=== PATIENT | female | born 1955 | race Caucasian/White ===

== ENCOUNTER 2021-07-19 21:06 | Inpatient (IN) | payer MEDICARE, OTHER ==
[~2021-07-19] VITALS: Ht 165.1 cm; Wt 71.2 kg
--- NOTE | 2021-07-19 21:40 | NUR ---
Pt brought back to room ED3 by comprehensive advisor Piyush. Placed on gurkillen in pos of comfort. Initial VSS, pt afebrile with good color, temp and appearance. Pt seems slightly irritable talking to herself and complaining of an old spider bite that happened few years ago. Pt otherwise follows commands and is respectful.
--- NOTE | 2021-07-19 22:58 | NUR ---
Medically cleared by ERMD.
--- NOTE | 2021-07-19 23:10 | NUR ---
Crisis team called for eval. Pt awaiting crisis rep for assessment.
--- NOTE | 2021-07-19 23:30 | NUR ---
Pt resting comfortably on gurney, in pos of comfort. Dozing off to sleep with audible snorring.
[2021-07-20] MEDS ORDERED: MAG HYDROX/AL HYDROX/SIMETH 30 ML LIQUID UDC PO PRN (02:15)
[2021-07-20] MEDS ORDERED: MAGNESIUM HYDROXIDE 30 ML LIQUID UDC PO PRN (02:15)
--- NOTE | 2021-07-20 02:30 | NUR ---
Pt seen by crisis rep earlier in the evening and placed on a 72hr hold. Intake called for a [facility] psych bed. Pt admitted to room 145 in the MHU.
--- NOTE | 2021-07-20 03:05 | NUR ---
Pt transported to [facility] via gurney with all her bags placed on top of gurney, accomplanied by me. Pt has good color, temp and appearance. VSS, PE WNL, pt resting quietly, following commands and being respectful
[2021-07-20] MEDS: LORAZEPAM 0.5 MG TABLET PO PRN ×2 (03:14→20:47)
[2021-07-20] MEDS: ACETAMINOPHEN 325 MG TABLET PO PRN (03:14)
[2021-07-20 03:15] VITALS: BP 134/74
--- NOTE | 2021-07-20 04:00 | NUR ---
ADMIT NOTE: Patient is a 65 yr old female admitted on a 5150 for Grave Disability. From [place] [facility] patient was found on the floor outside an urgent care, homeless, unable to care for self. Patient's appearance disheveled, unkempt with garbled tangental speech as well as exhibiting bizarre behavior. Patient is alert to name, time and date however when engaged pt. is unable to maintain a coherent conversation. Refused to sign and/or participate with admitting paperwork, stated she was tired and went to sleep. Hx of Methamphetamines and opioid use. Psychiatrist and physician aware of admission orders received and carried out. Patient stated she has a spider bite on right wrist (scab) which she claimed required surgery and demanded she had it first thing in the morning otherwise she would daisy the hospital for negligence. Patient's rights handbook provided. Plan of care initiated and observation Q15 minutes will take place times twenty-four hours.
[2021-07-20] MEDS ORDERED: GABA-532 PO (05:58)
[2021-07-20] MEDS ORDERED: HYDR-3980 PO (05:58)
[2021-07-20] MEDS ORDERED: QUET50TA PO (05:58)
[2021-07-20 07:30] VITALS: BP 145/67
[2021-07-20] MEDS: NICOTINE 14 MG/24HR PATCH TD SCH (09:23)
--- NOTE | 2021-07-20 10:05 | NUR ---
Firearms Report: Pelt Dropper completed and submitted a [employer] firearms report for 5150 grave disability certifications. A copy of report has been placed in patient chart.
--- NOTE | 2021-07-20 11:39 | NUR ---
[facility] Initial Discharge Plan: Patient is currently homeless. SW offered patient SNF placement and patient agreed. Patient has no next of kin contacts. LEDY will continue to work with patient, family, and MD to ensure a safe and proper discharge plan.
--- NOTE | 2021-07-20 12:01 | NUR ---
Brief Substance Abuse Intervention: Patient was provided with a brief substance abuse intervention and referred to the following substance abuse programs: [facility] Substance Abuse Self-helpline ([phone]); [facility] [address] [place] [address] ([phone]); [facility] [address] [facility] [address] ([phone]); [facility] ([phone]); [facility] ([phone]); [facility] ([phone]); [facility] ([phone]).
--- NOTE | 2021-07-20 12:30 | NUR ---
Gps/Cover Making Machine Operator- Encouraged to shower, wants her own shampoo in her suit case, unable to find. Showered self ind . after set up.
[2021-07-20] MEDS ORDERED: GABAPENTIN 100 MG CAPSULE PO SCH (13:00)
--- NOTE | 2021-07-20 15:05 | NUR ---
Gps/Bread Room Hand- Unable to clarify with patient why she is taking gabapentin , unable to find in her records reason for it.
--- NOTE | 2021-07-20 15:32 | NUR ---
Gps/Hide Splitter Patient requesting to get her oral antibiotic she claimed" I have syphylis and i have pneumonia , i needed my antibiotic" reassured patient the Medical Doctor will take care of her medical problems here if she has any issues. Adequate fluid intake., afebrile .Unable to get full informations from patient she is tangental , speech gets confused.
[2021-07-20 16:30] VITALS: BP 128/72
[2021-07-20] MEDS: GABAPENTIN 300 MG CAPSULE PO SCH (17:39)
[2021-07-20 20:22] VITALS: BP 126/72
[2021-07-20] MEDS: DIVALPROEX SPRINKLE 125 MG CAP.SPRINK PO SCH (20:47)
[2021-07-20] MEDS: OLANZAPINE 2.5 MG TABLET PO SCH (20:47)
[2021-07-21 07:30] VITALS: BP 144/90
[2021-07-21 08:13] LABS: BILIRUBIN,TOTAL 0.3 mg/dL (0.2-1.0); CREATININE 0.9 mg/dL (0.6-1.3); POTASSIUM 4.3 mmol/L (3.5-5.1); TOTAL PROTEIN, SERUM 6.9 g/dL (6.4-8.2)
[2021-07-21] MEDS: OLANZAPINE 2.5 MG TABLET PO SCH ×2 (08:58→20:14)
[2021-07-21] MEDS: DIVALPROEX SPRINKLE 125 MG CAP.SPRINK PO SCH ×2 (08:58→20:13)
[2021-07-21] MEDS: GABAPENTIN 300 MG CAPSULE PO SCH ×3 (08:58→17:00)
[2021-07-21] MEDS: NICOTINE 14 MG/24HR PATCH TD SCH (09:00)
--- NOTE | 2021-07-21 11:39 | NUR ---
Gps/Instructor Trainer Canine Service- Dr Hemanth Cooley in to see patient, informed patient had complaints of having infections disease (i.e. pneumonia and syphyllis) aware of patient's complaints , does note believed not reliable complaints. Adequate fluid intake.
[2021-07-21 16:57] VITALS: BP 149/96
[2021-07-21 20:00] VITALS: BP 127/77
--- NOTE | 2021-07-21 21:19 | NUR ---
GPS: Pt.currently refusing PNA and flu vaccine when offered despite explanation of risks vs benefits x3.
[2021-07-22] MEDS: ZOLPIDEM 5 MG TABLET PO PRN (00:19)
--- NOTE | 2021-07-22 05:54 | NUR ---
GPS: Pt.slept 7.15 last night. Remains disorganized,delusional and with impaired judgement. Re-assured and re-directed prn. Safety emphasized. Will continue to monitor.
[2021-07-22 07:51] VITALS: BP 143/95
[2021-07-22] MEDS: DIVALPROEX SPRINKLE 125 MG CAP.SPRINK PO SCH ×2 (08:24→20:23)
[2021-07-22] MEDS: GABAPENTIN 300 MG CAPSULE PO SCH ×3 (08:24→17:37)
[2021-07-22] MEDS: NICOTINE 14 MG/24HR PATCH TD SCH (08:24)
[2021-07-22] MEDS: OLANZAPINE 2.5 MG TABLET PO SCH ×2 (08:24→20:22)
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
[2021-07-22 16:21] VITALS: BP 114/60
[2021-07-22 20:00] VITALS: BP 110/58
[2021-07-23] MEDS: DIVALPROEX SPRINKLE 125 MG CAP.SPRINK PO SCH ×2 (08:27→20:41)
[2021-07-23] MEDS: GABAPENTIN 300 MG CAPSULE PO SCH ×3 (08:27→18:17)
[2021-07-23] MEDS: OLANZAPINE 2.5 MG TABLET PO SCH ×2 (08:27→20:41)
[2021-07-23] MEDS: NICOTINE 14 MG/24HR PATCH TD SCH (08:28)
[2021-07-23 10:49] VITALS: BP 143/93
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
[2021-07-23 15:22] VITALS: BP 161/90
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
[2021-07-23] MEDS: HYDROCODONE/APAP 10-325 MG TABLET PO PRN (20:41)
[2021-07-24 08:02] VITALS: BP 111/71
[2021-07-24] MEDS: GABAPENTIN 300 MG CAPSULE PO SCH ×3 (08:46→17:57)
[2021-07-24] MEDS: NICOTINE 14 MG/24HR PATCH TD SCH (08:46)
[2021-07-24] MEDS: OLANZAPINE 2.5 MG TABLET PO SCH ×2 (08:46→20:18)
[2021-07-24] MEDS: DIVALPROEX SPRINKLE 125 MG CAP.SPRINK PO SCH ×3 (08:51→17:58)
--- NOTE | 2021-07-24 09:33 | NUR ---
LEDY SNF Referral: LEDY faxed patient's referral packet to [facility] (fax: [phone]) for review attention to Aubree bautistaseo coordinator. Addendum: 07/24/21 at 1211 by ANNETTA MACHADO Patient did not get accepted for placement.
--- NOTE | 2021-07-24 12:11 | NUR ---
SW SNF Referral: LEDY faxed patient's referral packet to [facility] ([phone]) and [facility] ([phone]) for review attention to Matthew.
[2021-07-24 16:01] VITALS: BP 137/71
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
[2021-07-24 20:25] VITALS: BP 126/66
[2021-07-25 07:30] VITALS: BP 148/73
[2021-07-25] MEDS: OLANZAPINE 2.5 MG TABLET PO SCH ×2 (09:12→20:05)
[2021-07-25] MEDS: DIVALPROEX SPRINKLE 125 MG CAP.SPRINK PO SCH ×3 (09:12→18:18)
[2021-07-25] MEDS: GABAPENTIN 300 MG CAPSULE PO SCH ×3 (09:12→18:18)
[2021-07-25] MEDS: NICOTINE 14 MG/24HR PATCH TD SCH (09:12)
--- NOTE | 2021-07-25 10:49 | NUR ---
LED[facility] PC Hearing: Patient had 5250 probable cause hearing today and it was upheld for grave disability.
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
[2021-07-25 15:12] VITALS: BP 123/66
[2021-07-25 19:48] VITALS: BP 128/69
--- NOTE | 2021-07-26 06:37 | NUR ---
GPS: Pt.slept 8.15 last night. Remains delusional, disorganized and hyperverbal. Re-directed and re-assured prn. Safe environment provided. Will continue to monitor.
[2021-07-26 07:30] VITALS: BP 137/59
[2021-07-26] MEDS: DIVALPROEX SPRINKLE 125 MG CAP.SPRINK PO SCH ×3 (08:39→17:14)
[2021-07-26] MEDS: GABAPENTIN 300 MG CAPSULE PO SCH ×3 (08:39→17:14)
[2021-07-26] MEDS: OLANZAPINE 2.5 MG TABLET PO SCH ×2 (08:39→21:07)
[2021-07-26] MEDS: NICOTINE 14 MG/24HR PATCH TD SCH (08:39)
--- NOTE | 2021-07-26 09:11 | NUR ---
GPS: PT ON BED, HAVING BREAKFAST.. COOPERATIVE WITH CARE AND COMPLIANT WITH MEDICATIONS. PT SEEN WITH RIGHT ARM WOUND, SAID THAT IT HAS BEEN THERE FOR YEARS AND IT COMES AND GOES AND SHE LIKES TO HAVE A SURGERY ON IT.
[2021-07-26] MEDS: HYDROCODONE/APAP 10-325 MG TABLET PO PRN ×2 (12:37→21:24)
--- NOTE | 2021-07-26 13:28 | NUR ---
GPS: PT SEEN BY DR ANDUJAR AROUND LUNCH TIME AND EXAMINED HER RIGHT ARM WOUND. PER MD, SHE WILL PRESCRIBE MEDICATION FOR THE SPIDER BITE THAT PT HAD SINCE LAST YEAR.
[2021-07-26 16:00] VITALS: BP 144/69
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
[2021-07-26 20:03] VITALS: BP 124/75
[2021-07-27] MEDS: ZOLPIDEM 5 MG TABLET PO PRN (00:55)
[2021-07-27] MEDS: LORAZEPAM 0.5 MG TABLET PO PRN (01:55)
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
--- NOTE | 2021-07-27 06:00 | NUR ---
Slept 5.25 hours, total. Continues to sleep. No distress noted.
[2021-07-27 07:30] VITALS: BP 112/71
[2021-07-27] MEDS: GABAPENTIN 300 MG CAPSULE PO SCH ×3 (08:13→17:07)
[2021-07-27] MEDS: NICOTINE 14 MG/24HR PATCH TD SCH (08:13)
[2021-07-27] MEDS: DIVALPROEX SPRINKLE 125 MG CAP.SPRINK PO SCH ×3 (08:13→17:07)
[2021-07-27] MEDS: OLANZAPINE 2.5 MG TABLET PO SCH ×2 (08:13→21:18)
--- NOTE | 2021-07-27 09:17 | NUR ---
GPS: RECEIVED PT TODAY, ALERT AND ORIENTED X 3. ORDERED COVID TEST PT WILL BE DISCHARGE TOMORROW PER SW.
[2021-07-27] MEDS: ACETAMINOPHEN 325 MG TABLET PO PRN (13:15)
[2021-07-27 16:00] VITALS: BP 113/61
--- NOTE | 2021-07-27 18:36 | NUR ---
GPS: PT SCHEDULE OF [facility] FOR TOMORROW WAS CANCELLED PER MD. PT ALERT AND ORIENTED X 3. PT HYPERVERBAL AND NEEDY AT TIMES. NO AGITATION NOTED. COOPERATIVE WITH CARE AND COMPLIANT WITH MEDICATIONS.
[2021-07-27] MEDS: HYDROCODONE/APAP 10-325 MG TABLET PO PRN (21:29)
[2021-07-27 21:53] VITALS: BP 116/54
[2021-07-28] MEDS: HYDROCODONE/APAP 10-325 MG TABLET PO PRN ×3 (06:22→23:14)
--- NOTE | 2021-07-28 06:30 | NUR ---
R eceived to care, last night, lying in bed, isolative, but pleasant and cooperative, when approached. Slept 7.75 hours, total. Was more calm and appropriate, but continues to believe that a man is following her, from place, to place. Medicated twice, for severe pain, to right arm wound. She took a shower, and wound was cleaned, and dressed, afterwards. New photo was taken, and placed in chart. Wound appears to be larger, and have more discharge, than last photo. Will address this with oncoming shift, for MD to assess.
[2021-07-28 07:30] VITALS: BP 106/58
[2021-07-28] MEDS: GABAPENTIN 300 MG CAPSULE PO SCH ×3 (08:35→16:19)
[2021-07-28] MEDS: DIVALPROEX SPRINKLE 125 MG CAP.SPRINK PO SCH ×3 (08:36→16:19)
[2021-07-28] MEDS: NICOTINE 14 MG/24HR PATCH TD SCH (08:36)
[2021-07-28] MEDS: OLANZAPINE 5 MG TABLET PO SCH ×2 (08:37→20:24)
--- NOTE | 2021-07-28 11:14 | NUR ---
WOUND CARE CONSULT: PT PRESENTS WITH PURULENT WOUND WITH SCARRING TO RT WRIST, PRESENT ON ADMISSION CRUSTED WOUND PER NURSING STAFF. SURGICAL CONSULT CALLED TO DR TORSTEN MOBLEY. RECOMMENDATIONS MADE FOR SKIN PROTECTION AND WOUND CARE. IN AGREEMENT WITH PLAN OF CARE.
--- NOTE | 2021-07-28 11:17 | NUR ---
Gps/Instructional Assistant- tow operator Zuly in to checked right forearm wound, site was cleansed with NS large baindaid applied. Per Zuly Rn will call for Surgeon to check site.
--- NOTE | 2021-07-28 15:24 | NUR ---
Gps/Suction Operator- Patient verbalized appreciation , someone checking her right arm wound. Per patient , she has the wound for more than a year. Scanty purulent drainage was noted. denies any pain over the site.
[2021-07-28 16:00] VITALS: BP 116/55
[2021-07-28 20:03] VITALS: BP 112/54
[2021-07-28] MEDS: LORAZEPAM 0.5 MG TABLET PO PRN (20:24)
[2021-07-29] MEDS: ZOLPIDEM 5 MG TABLET PO PRN (03:02)
--- NOTE | 2021-07-29 06:35 | NUR ---
At the start of the shift, the patient was hyperverbal , with delusions of grandeur. Anxious and energetic.This science writer was able to redirect the patient easily however, which lasted only short periods of time. During the night ,the patient would get up and down, asking for medications and food etc. This patient was unable to engage in any meaningful or rational conversation with this science writer. Safety stratiges in place and reorientation to the reality of the situation attempted by this science writer. With little or no effect.
[2021-07-29 07:30] VITALS: BP 122/71
[2021-07-29] MEDS: GABAPENTIN 300 MG CAPSULE PO SCH ×3 (08:23→17:07)
[2021-07-29] MEDS: OLANZAPINE 5 MG TABLET PO SCH ×2 (08:24→20:35)
[2021-07-29] MEDS: NICOTINE 14 MG/24HR PATCH TD SCH (08:24)
[2021-07-29] MEDS: DIVALPROEX SPRINKLE 125 MG CAP.SPRINK PO SCH ×3 (08:24→17:07)
[2021-07-29] MEDS: HYDROCODONE/APAP 10-325 MG TABLET PO PRN ×2 (10:36→20:59)
--- NOTE | 2021-07-29 11:46 | NUR ---
Gps/Plant Production Worker- Patient moved to room 138-B , patient was well informed, claimed she like the room it is quiet. Had been compliant with am routine meds,Wound care to her right arm wound, cleansed with NS pat dry, covered with large bandaid. No drainage noted at this time, < redness.
[2021-07-29 16:00] VITALS: BP 98/59
[2021-07-29 20:00] VITALS: BP 131/61
--- NOTE | 2021-07-29 22:00 | NUR ---
Received patient in her room in bed. she is noted awake A/O x 2. she is noted hyperverbal, persecutory delusional with paranoid ideation. Patient had few papers, some with her own writing. she stated to music writer, "I need to put this paper inside my suite case. there are very important papers and I need to give them to my load planner. this papers have to be kept locked and my suite case". patient noted preoccupied and fixed on her papers. she required redirection and reassurance. She is reassured for her safety and reality checks was also conducted. safety and fall precaution are in place. V/S stable. she is given PO fluids and snacks. will continue to monitor.
[2021-07-30] MEDS: ZOLPIDEM 5 MG TABLET PO PRN (01:35)
[2021-07-30 07:57] VITALS: BP 135/59
[2021-07-30] MEDS: GABAPENTIN 300 MG CAPSULE PO SCH ×3 (08:20→16:16)
[2021-07-30] MEDS: NICOTINE 14 MG/24HR PATCH TD SCH (08:21)
[2021-07-30] MEDS: DIVALPROEX SPRINKLE 125 MG CAP.SPRINK PO SCH ×3 (08:21→16:16)
[2021-07-30] MEDS: OLANZAPINE 5 MG TABLET PO SCH ×2 (08:21→20:54)
[2021-07-30] MEDS: HYDROCODONE/APAP 10-325 MG TABLET PO PRN ×2 (08:27→18:22)
[2021-07-30] MEDS: SODIUM HYPOCHLORITE 0.25% (HALF STRENGTH) 480 ML BOTTLE TOP SCH (14:45)
[2021-07-30 15:57] VITALS: BP 104/53
[2021-07-30 20:22] VITALS: BP 112/54
[2021-07-31 07:54] VITALS: BP 140/55
[2021-07-31] MEDS: GABAPENTIN 300 MG CAPSULE PO SCH ×3 (08:59→16:39)
[2021-07-31] MEDS: OLANZAPINE 5 MG TABLET PO SCH ×2 (08:59→20:13)
[2021-07-31] MEDS: NICOTINE 14 MG/24HR PATCH TD SCH (08:59)
[2021-07-31] MEDS: DIVALPROEX SPRINKLE 125 MG CAP.SPRINK PO SCH ×3 (08:59→16:39)
[2021-07-31] MEDS: HYDROCODONE/APAP 10-325 MG TABLET PO PRN ×2 (09:03→16:44)
[2021-07-31] MEDS: SODIUM HYPOCHLORITE 0.25% (HALF STRENGTH) 480 ML BOTTLE TOP SCH (11:23)
[2021-07-31 16:34] VITALS: BP 140/55
--- NOTE | 2021-07-31 17:13 | NUR ---
patient is alert and oriented. patient is guarded, witdrawn, anxious, restless, and easily agitated and labile in mood. patient is compliant with medication. she is cooperative and redirectable. patient denies suicidal and homicidal ideation. patient noted with paranoid delusions, she states that she needs to be in the witness protection program because her life is in danger because there are others after her trying to kill her. patient provided with reality orientation and her safety was re-inforced. patient is able to ambulate independently, able to provide for self care and ADL's independently. patient provided with education about impulse control and communicating needs to staff appropriately. patient encouraged to participate in unit groups and therapeutic milieu.
[2021-07-31 20:09] VITALS: BP 139/59
[2021-07-31] MEDS: ACETAMINOPHEN 325 MG TABLET PO PRN (23:57)
--- NOTE | 2021-08-01 03:21 | NUR ---
Received patient in her room, compliant with care, med compliant, semi fair insight and semi fair judgment. Patient will remain in a psych facility for further evaluation and treatment.
[2021-08-01 07:30] VITALS: BP 106/70
--- NOTE | 2021-08-01 08:00 | NUR ---
SW Discharge Note: Patient will be discharged to halfway facility [facility] [place] [address] ([phone]) via Ambulance transportation at 1:00pm today. Vector Control Assistant spoke with [employer] ([phone]) at facility and he confirmed that patient has been accepted at their facility today. Patient is alert and oriented x4. Patient is not able to plan for self-care at this time but is willing to accept care provided for her at the facility. Patient denies suicidal or homicidal ideation. Patient is aware and agreeable with discharge plans. Patient presents with euthymic mood and congruent affect. Patient will continue to follow-up with Psychiatrist Dr. Cervantes and Head Of Cytogenetics Dr. Calhoun at [facility] Patient signed the homeless waiver upon discharge and a copy was placed in the chart. Homeless resources were provided and include [address] information line for shelters and homeless resources. A copy of all resources given to patient was also placed in the chart.
[2021-08-01] MEDS: NICOTINE 14 MG/24HR PATCH TD SCH (08:45)
[2021-08-01] MEDS: GABAPENTIN 300 MG CAPSULE PO SCH ×2 (08:45→12:26)
[2021-08-01] MEDS: OLANZAPINE 5 MG TABLET PO SCH (08:45)
[2021-08-01] MEDS: DIVALPROEX SPRINKLE 125 MG CAP.SPRINK PO SCH ×2 (08:45→12:27)
[2021-08-01] MEDS: HYDROCODONE/APAP 10-325 MG TABLET PO PRN (08:53)
[2021-08-01] MEDS: SODIUM HYPOCHLORITE 0.25% (HALF STRENGTH) 480 ML BOTTLE TOP SCH (08:53)
[2021-08-01] MEDS: ACETAMINOPHEN 325 MG TABLET PO PRN (12:43)
--- NOTE | 2021-08-01 14:42 | NUR ---
DISCHARGE NOTE: Patient discharged to [facility] located at [address] [place] [phone] ([phone]) via Ambulance transportation Patient escorted off the unit with nursing staff and EMT in a gurney. Patient denies suicidal or homicidal ideation. Patient's belongings, valuables, and home medications inventoried with patient and all was returned to patient. Patient was provided with education about discharge medications, instructions, and plan for continued treatment and follow up care, patient able to verbalize understanding. Patient noted with open abscess on right forearm, wound treatment done per orders, photo taken and placed in chart.
== END 2021-08-01 14:30 | DRG 876 ==
LOC: ER 21:10 → GPS 23:00
PROVIDERS: ADMIT Psychiatry & Neurology Psychiatry; ATTEND Internal Medicine
PROC: 0JBG0ZZ Excision of Right Lower Arm Subcutaneous Tissue and Fascia, Open Approach (ICD-10-PCS; principal; 2021-07-31)
DX: F31.2 Bipolar disorder, current episode manic severe with psychotic features (principal); F23 Brief psychotic disorder; L02.413 Cutaneous abscess of right upper limb; L03.113 Cellulitis of right upper limb; Z59.00 Homelessness unspecified; G40.909 Epilepsy, unspecified, not intractable, without status epilepticus; F15.10 Other stimulant abuse, uncomplicated; F11.10 Opioid abuse, uncomplicated; Z73.6 Limitation of activities due to disability; M62.81 Muscle weakness (generalized); F41.9 Anxiety disorder, unspecified; Z20.822 Contact with and (suspected) exposure to COVID-19; F29 Unspecified psychosis not due to a substance or known physiological condition
CPT/HCPCS: 36415; 80164; 86592; 97161; A4663